=== PATIENT | female | born 1975 | race Caucasian/White ===

== ENCOUNTER 2024-02-13 06:16 | Observation (INO) | payer OTHER ==
[2024-02-13 06:23] VITALS: BMI 32.9
[2024-02-13] MEDS ORDERED: KETOROLAC TROMETHAMINE 30 MG/1 ML VIAL ONE (07:41)
[2024-02-13] MEDS ORDERED: diazePAM CARPU-JECT 10 MG/2 ML DISP.SYRIN ONE ×3 (07:41→14:57)
[2024-02-13] MEDS: SODIUM CHLORIDE 1,000 ML IV STA (08:09)
[2024-02-13] MEDS: KETOROLAC TROMETHAMINE 30 MG/1 ML VIAL IVPUSH ONE (08:09)
[2024-02-13] MEDS: diazePAM CARPU-JECT 10 MG/2 ML DISP.SYRIN IVPUSH ONE ×3 (08:10→15:04)
[2024-02-13 08:18] LABS: HEMATOCRIT 36.3 % (32.4-45.2); HEMOGLOBIN 11.9 GM/dL (10.7-15.3); MCH 29.8 pg (25.7-33.7); MCHC 32.9 g/dl (32.0-36.0); MEAN CELL VOLUME 90.8 fl (80-96); MEAN PLT VOLUME 7.3 fl (7.5-11.1); PLATELET COUNT 279 10^3/uL (134-434); RDW 15.5 % (11.6-15.6); WHITE BLOOD COUNT 14.1 K/mm3 (4.0-10.0)
[2024-02-13 08:42] LABS: POTASSIUM 3.8 mmol/L (3.5-5.1)
[2024-02-13 08:44] LABS: ALBUMIN 3.7 g/dl (3.4-5.0); CALCIUM 8.6 mg/dL (8.5-10.1)
[2024-02-13 08:45] LABS: BLOOD UREA NITROGEN 6.6 mg/dL (7-18); MAGNESIUM 1.9 mg/dL (1.8-2.4)
[2024-02-13 08:47] LABS: CREATININE 0.5 mg/dL (0.55-1.3)
[2024-02-13 08:48] LABS: PHOSPHOROUS 4.2 mg/dL (2.5-4.9)
[2024-02-13 08:49] LABS: BILIRUBIN,TOTAL 0.5 mg/dL (0.2-1); TOT PROT 7.4 g/dl (6.4-8.2)
[2024-02-13 10:13] LABS: ANISOCYTOSIS 0; MACROCYTOSIS 0
[2024-02-13 10:16] LABS: PLATELET ESTIMATE ADEQUATE
[2024-02-13 10:55] LABS: EPI CELLS 2 /uL (0-25.1); HYALINE CASTS 0 /uL (0-3.1); PH,URINE 7.5 (5.0-8.0); URINE APPEARANCE CLEAR; URINE BACTERIA 6 /uL (0-1359); URINE BILIRUBIN NEGATIVE (NEGATIVE); URINE COLOR YELLOW; URINE GLUCOSE (UA) NEGATIVE (NEGATIVE); URINE KETONE NEGATIVE (NEGATIVE); URINE LEUK ESTERASE NEGATIVE (NEGATIVE); URINE NITRITE NEGATIVE (NEGATIVE); URINE PROTEIN NEGATIVE (NEGATIVE); URINE RBC 32 /uL (0-23.9); URINE UROBILINOGEN 0.2 mg/dL (0.2-1.0); URINE WBC 1 /uL (0-25.8)
[2024-02-13 11:45] LABS: METHADONE, UR NEGATIVE (NEGATIVE); OPIATES, URI NEGATIVE (NEGATIVE)
[2024-02-13 11:46] LABS: COCAINE, UR NEGATIVE (NEGATIVE); PHENCYCLIDINE,URINE NEGATIVE (NEGATIVE); URINE AMPHETAMINES NEGATIVE (NEGATIVE); URINE BARBITURATES NEGATIVE (NEGATIVE); URINE BENZODIAZEPINES NEGATIVE (NEGATIVE)
[2024-02-13] MEDS ORDERED: ACETAMINOPHEN INJECTION 100 ML IVPB ONE (14:24)
[2024-02-13] MEDS: ACETAMINOPHEN 1000 MG/100 ML BAG IVPB ONE (14:33)
[2024-02-13] MEDS ORDERED: ONDANSETRON 4 MG/2 ML VIAL IVPUSH PRN (15:02)
[2024-02-13] MEDS: LACTATED RINGERS SOLUTION 1,000 ML/1,000 ML INFUS.BAG IV SCH (15:44)
[2024-02-13] MEDS: chlordiazePOXIDE HCL 25 MG CAPSULE PO SCH (15:44)
[2024-02-13] MEDS ORDERED: chlordiazePOXIDE HCL 25 MG CAPSULE ONE (15:49)
[2024-02-13] MEDS: HEPARIN NA (PORCINE) 5,000 UNITS/ML 1ML VIAL SQ SCH (21:26)
[2024-02-13] MEDS: THIAMINE 100 MG TABLET PO SCH (21:26)
[2024-02-14] MEDS: ACETAMINOPHEN 500 MG TABLET (FP) PO PRN (03:57)
[2024-02-14] MEDS: chlordiazePOXIDE HCL 25 MG CAPSULE PO PRN (03:58)
[2024-02-14 09:17] LABS: BASO % 0.4 % (0-2.0); EOS % 0.3 % (0-4.5); HEMATOCRIT 34.1 % (32.4-45.2); HEMOGLOBIN 11.5 GM/dL (10.7-15.3); LYMPH % 31.9 % (8-40); MCH 30.4 pg (25.7-33.7); MCHC 33.8 g/dl (32.0-36.0); MEAN PLT VOLUME 7.6 fl (7.5-11.1); MONO % 6.7 % (3.8-10.2); NEUT % 60.7 % (42.8-82.8); PLATELET COUNT 259 10^3/uL (134-434); RBC 3.79 M/mm3 (3.60-5.2); RDW 15.7 % (11.6-15.6); WHITE BLOOD COUNT 5.6 K/mm3 (4.0-10.0)
[2024-02-14 09:31] LABS: POTASSIUM 3.5 mmol/L (3.5-5.1)
[2024-02-14 09:36] LABS: CALCIUM 8.1 mg/dL (8.5-10.1)
[2024-02-14 09:38] LABS: BLOOD UREA NITROGEN 5.6 mg/dL (7-18)
[2024-02-14 09:39] LABS: CREATININE 0.4 mg/dL (0.55-1.3)
[2024-02-14] MEDS: amLODIPine BESYLATE 5 MG TABLET (FP) PO SCH (09:48)
[2024-02-14] MEDS: SERTRALINE HCL 50 MG TABLET (FP) PO SCH (09:48)
[2024-02-14] MEDS: FOLIC ACID 1 MG TABLET (FP) PO SCH (09:49)
[2024-02-14] MEDS: hydrOXYzine PAMOATE 25 MG CAPSULE (FP) PO ONE (20:29)
[2024-02-15 09:41] LABS: POTASSIUM 4.3 mmol/L (3.5-5.1)
[2024-02-15 09:44] LABS: CALCIUM 8.8 mg/dL (8.5-10.1)
[2024-02-15 09:45] LABS: BLOOD UREA NITROGEN 6.6 mg/dL (7-18); MAGNESIUM 2.1 mg/dL (1.8-2.4)
[2024-02-15 09:47] LABS: CREATININE 0.5 mg/dL (0.55-1.3); PHOSPHOROUS 4.3 mg/dL (2.5-4.9)
[2024-02-15] MEDS: amLODIPine BESYLATE 10 MG TABLET (FP) PO SCH (10:00)
[2024-02-15] MEDS: ENOXAPARIN NA (PORCINE) 40 MG/0.4 ML DISP.SYRIN SQ SCH (10:00)
[2024-02-15] MEDS ORDERED: LORazepam 1 MG TABLET PO PRN (17:26)
[2024-02-15] MEDS: MELATONIN 1 MG TABLET PO SCH (22:43)
[2024-02-16] MEDS: LORazepam 1 MG TABLET PO PRN (07:08)
[2024-02-16 09:15] LABS: POTASSIUM 4.6 mmol/L (3.5-5.1)
[2024-02-16 09:22] LABS: BLOOD UREA NITROGEN 7.2 mg/dL (7-18); CALCIUM 8.1 mg/dL (8.5-10.1)
[2024-02-16 09:24] LABS: CREATININE 0.4 mg/dL (0.55-1.3)
[2024-02-16 09:25] LABS: PHOSPHOROUS 4.1 mg/dL (2.5-4.9)
[2024-02-16 11:28] VITALS: RESP 18
[2024-02-16] MEDS: traMADol HCL 50 MG TABLET PO PRN (15:24)
[2024-02-16] MEDS: PHENAZOPYRIDINE HCL 100 MG TABLET (FP) PO SCH (17:23)
[2024-02-16] MEDS: ACETAMINOPHEN 500 MG TABLET (FP) PO PRN (21:21)
[2024-02-17 10:53] LABS: POTASSIUM 4.1 mmol/L (3.5-5.1)
[2024-02-17 10:58] LABS: CALCIUM 8.8 mg/dL (8.5-10.1)
[2024-02-17 10:59] LABS: MAGNESIUM 2.2 mg/dL (1.8-2.4)
[2024-02-17 11:01] LABS: BLOOD UREA NITROGEN 8.3 mg/dL (7-18)
[2024-02-17 11:02] LABS: CREATININE 0.5 mg/dL (0.55-1.3)
[2024-02-18 10:41] LABS: POTASSIUM 3.5 mmol/L (3.5-5.1)
[2024-02-18 10:43] LABS: BLOOD UREA NITROGEN 9.4 mg/dL (7-18); CALCIUM 8.7 mg/dL (8.5-10.1); MAGNESIUM 1.9 mg/dL (1.8-2.4)
[2024-02-18 10:46] LABS: CREATININE 0.5 mg/dL (0.55-1.3)
[2024-02-18 10:47] LABS: PHOSPHOROUS 3.2 mg/dL (2.5-4.9)
[2024-02-18] MEDS: hydrOXYzine PAMOATE 25 MG CAPSULE (FP) PO PRN (21:31)
[2024-02-19 09:33] VITALS: BP 118/78; PULSE 98; TEMP 98.8
== END 2024-02-19 09:25 | disposition home or self-care (01) ==
LOC: JER 06:16 → INTOOBSV 14:44 → JERBED 14:44 → UNDOADMOB 14:44 → JERBED 16:37 → J5S 16:48
PROVIDERS: ADMIT Internal Medicine
PROC: 3E033NZ Introduction of Analgesics, Hypnotics, Sedatives into Peripheral Vein, Percutaneous Approach (ICD-10-PCS; principal; 2024-02-13)
PROC: 3E023GC Introduction of Other Therapeutic Substance into Muscle, Percutaneous Approach (ICD-10-PCS; 2024-02-13)
PROC: 3E0337Z Introduction of Electrolytic and Water Balance Substance into Peripheral Vein, Percutaneous Approach (ICD-10-PCS; 2024-02-13)
DX: F10.939 Alcohol use, unspecified with withdrawal, unspecified (principal); C50.919 Malignant neoplasm of unspecified site of unspecified female breast; R10.9 Unspecified abdominal pain; R25.1 Tremor, unspecified; R45.1 Restlessness and agitation; F41.8 Other specified anxiety disorders; Z87.891 Personal history of nicotine dependence; I10 Essential (primary) hypertension; E78.5 Hyperlipidemia, unspecified; Z79.899 Other long term (current) drug therapy
CPT/HCPCS: 36415; 71045-TC-FY; 74177-TC; 80048; 80053; 80305; 80307; 81003; 82140; 83690; 83735; 84100; 84703; 85025; 87086; 93005; 93010; 96361; 96372; 96374; 96375; 96376; 99285-25; G0378; J0131; J1644; Q9967

== ENCOUNTER 2024-02-19 11:17 | Emergency (ER) | payer OTHER ==
[2024-02-19 12:02] VITALS: BP 110/79; PULSE 89; RESP 18; TEMP 98.5; BMI 26.5
[2024-02-19 13:35] LABS: EPI CELLS 0 /uL (0-25.1); HYALINE CASTS 0 /uL (0-3.1); URINE APPEARANCE CLEAR; URINE BILIRUBIN NEGATIVE (NEGATIVE); URINE COLOR DK YELLOW; URINE GLUCOSE (UA) NEGATIVE (NEGATIVE); URINE KETONE NEGATIVE (NEGATIVE); URINE LEUK ESTERASE NEGATIVE (NEGATIVE); URINE NITRITE POSITIVE (NEGATIVE); URINE PROTEIN NEGATIVE (NEGATIVE); URINE RBC 1 /uL (0-23.9); URINE WBC 0 /uL (0-25.8)
[2024-02-19] MEDS ORDERED: CEPHALEXIN MONOHYDRATE 500 MG CAPSULE (UD) ONE (14:19)
[2024-02-19] MEDS ORDERED: ALPRAZolam 1 MG TABLET ONE (14:19)
[2024-02-19] MEDS: CEPHALEXIN MONOHYDRATE 500 MG CAPSULE (UD) PO ONE (14:30)
[2024-02-19] MEDS: ALPRAZolam 0.25 MG TABLET PO ONE (14:30)
[2024-02-19 14:35] LABS: URINE BACTERIA 50.2 /uL (0-1359)
[2024-02-19] MEDS ORDERED: KETOROLAC TROMETHAMINE 30 MG/1 ML VIAL ONE (14:39)
[2024-02-19] MEDS: KETOROLAC TROMETHAMINE 30 MG/1 ML VIAL IM ONE (15:07)
== END 2024-02-19 18:00 | disposition home or self-care (01) ==
LOC: JER 11:17
PROC: 3E0133Z Introduction of Anti-inflammatory into Subcutaneous Tissue, Percutaneous Approach (ICD-10-PCS; principal; 2024-02-19)
DX: N30.00 Acute cystitis without hematuria (principal); R30.0 Dysuria; R35.0 Frequency of micturition; R39.15 Urgency of urination; R10.30 Lower abdominal pain, unspecified
CPT/HCPCS: 81003; 87086; 99284-25